=== PATIENT | female | born 1955 | race Caucasian/White ===

== ENCOUNTER 2022-09-08 16:12 | Emergency (ER) | payer MEDICARE, MEDICAID, SELFPAY ==
[2022-09-08 16:12] VITALS: BP 121/67; PULSE 114; RESP 16; TEMP 36.5; O2SAT 96; BMI 31.1
--- NOTE | 2022-09-08 16:28 | EX.ED.VIS.UR ---
HPI HPI - URI History of Present Illness Chief Complaint: Nosebleed Informant: patient Onset/Context/Timing Onset: - (30 min [employer]) Context: Sudden Onset Timing: Continuous Quality: oozing Location: both nostrils she thinks, not sure Current Severity: Mild Maximum Severity: Severe Worsened by: - (nothing) Relieved by: - (holding pressure) Associated Symptoms Associated Symptoms: Positive for Nasal Congestion Narrative Narrative: Patient spontaneous nosebleed today from both sides. Seems to be better now that she is holding pressure. She was swallowing a lot of blood, started without any injury, just when she bent over. States she has been using phenylephrine nasal spray every day for months because of congestion and trouble breathing through her nose when she is trying to sleep mostly. Better during the day. She went to ENT and they told her to stop it and they were doing some allergy injections, so she stopped the phenylephrine nasal spray for about 1 or 2 weeks about a month or so ago, but the other things they were doing were not helping her at all so she has continued to use it every night. She denies taking any aspirin or anticoagulants. ROS ROS ED Constitutional Constitutional ED: Denies chills or fever(s) Eyes Eyes: Denies change in vision or diplopia ENT ENT ED: Reports epistaxis and nasal congestion; Denies sinus pain, sinus pressure or sore throat Cardiovascular Cardiovascular: Denies chest pain or palpitations Respiratory/Chest Respiratory/Chest: Denies cough or dyspnea Gastrointestinal Gastrointestinal: Denies abdominal pain, diarrhea, nausea or vomiting Genitourinary Genitourinary ED: Denies dysuria or hematuria Musculoskeletal Musculoskeletal: Denies myalgias or neck pain Integumentary Denies abscess or rash Neurologic Neurologic: Denies headache(s), paresthesias or weakness Psychiatric Psychiatric: Denies depression or suicidal thoughts Endocrine Endocrinology: Denies polydipsia or polyuria [facility] Medical History (Updated 09/08/22 @ 18:[address] Tyshawn Lantigua MD) Benign hypertension Home Medications albuterol sulfate 90 mcg/actuation aerosol inhaler (Ventolin HFA) 1 - 2 puff inhalation Q4H PRN PRN Wheezing ##1 01/16/15 [Rx Last Taken Unknown] dexlansoprazole 60 mg capsule,biphase delayed release 60 mg PO DAILY 09/08/22 [History Last Taken Unknown] escitalopram oxalate 5 mg tablet 5 mg PO DAILY 09/08/22 [History Last Taken Unknown] famotidine 20 mg tablet 20 mg PO DAILY 09/08/22 [History Last Taken Unknown] lisinopril 20 mg-hydrochlorothiazide 12.5 mg tablet 1 tab PO BID 09/08/22 [History Last Taken Unknown] simvastatin 20 mg tablet 20 mg PO QHS 09/08/22 [History Last Taken Unknown] zolpidem 5 mg tablet 5 mg PO QHS PRN PRN Sleep 09/08/22 [History Last Taken Unknown] Allergy/AdvReac Type Severity Reaction Status Date / Time No Known Allergies Allergy Verified 09/08/22 16:14 Social History Smoking Status: Never smoker EXAM Physical Exam Const Vital Signs: 09/08/22 16:12 09/08/22 17:12 Temperature 97.7 F L Temperature Source Temporal Pulse Rate 114 H Respiratory Rate 16 16 Blood Pressure 121/67 H Blood Pressure Mean 85 Pulse Ox 96 Oxygen Delivery Method Room Air Positive well nourished and well developed General Appearance ED: well developed and NAD HEENT Reports moist mucous membranes HEENT Narrative: Posterior oropharynx with some blood but no active bleeding. Removed the nasal clip from the patient's nose, there is blood in both sides with minimal active oozing. I had patient blow her nose, she blew out a large amount of blood clots, and blood and on reevaluation she does not have active bleeding but she appears to have a small source at the septum on the left that is just barely starting to bleed. normocephalic and atraumatic Throat: Negative for posterior oropharynx abnormal Eyes PERRL and EOMs intact bilaterally Neck no lymphadenopathy, supple and no meningeal signs Resp normal respiratory effort and clear to auscultation bilaterally Cardio no murmurs Rate: regular rate Rhythm: regular rhythm Neuro oriented x3, CN's II-XII intact bilaterally and no sensory deficits noted Sensorium / Orientation: alert Motor Exam: strength 5/5 throughout Skin Lesions: no lesions Rashes: no rashes MDM MDM MDM Narrative Medical decision making narrative: Initially after evacuating her own nose of blood and clots, I evaluated again and she has the likely nidus of bleeding in the anterior aspect of the left naris at the septum. It is no longer bleeding. Therefore after the patient verbal consent, I did topical silver nitrate cauterization, however it started bleeding due to this and so then topical Shilpa solution was placed in both nostrils, via inhalation as well as a pledget and the patient was observed for 20 minutes or so. She had a little bit of bleeding through this we had to do it again, but afterwards I was able to recauterize the area where the bleeding was coming from with good hemostasis. She was observed for another 10 or 15 minutes without any recurrent bleeding and discharged home advised to stop doing the daily nasal spray and try something like Breathe Right strips. Discharge Plan Triage Chief Complaint: Nosebleed ED Provider: Tyshawn Lantigua Dx/Rx/DC Orders Clinical Impression: Acute anterior epistaxis, Nasal congestion Instructions: Nosebleed Prescriptions: No Action albuterol sulfate [Ventolin HFA] 1 INHALER inhaler 1 - 2 puff inhalation Q4H PRN PRN (Reason: Wheezing) Qty: 1 0RF lisinopril-hydrochlorothiazide 20-12.5 mg tablet 1 tab PO BID Label Comments: TAKE 1 TABLET BY MOUTH TWICE A DAY famotidine 20 mg tablet 20 mg PO DAILY Label Comments: TAKE 1 TABLET BY MOUTH EVERY DAY AT BEDTIME NEEDED simvastatin 20 mg tablet 20 mg PO QHS Label Comments: TAKE 1 TABLET BY MOUTH EVERYDAY AT BEDTIME zolpidem 5 mg tablet 5 mg PO QHS PRN PRN (Reason: Sleep) Label Comments: TAKE 1 TABLET BY MOUTH AT BEDTIME NEEDED (INSOMNIA) FOR UP TO 180 DAYS. escitalopram oxalate 5 mg tablet 5 mg PO DAILY Label Comments: TAKE 1 TABLET BY MOUTH EVERY DAY dexlansoprazole 60 mg capsule,biphase delayed releas 60 mg PO DAILY Primary Care Provider: Forest Levine Referrals: Parvez Massey MD [Med Staff - Active Staff] - As Needed Activity Restrictions/Additional Instructions: Try to stop using phenylephrine nasal spray for a while is much as possible. Try Breathe Right strips at night for your congestion. If you have recurrent bleeding, you may first use any nech-kzz-eouefim nasal decongestant spray containing oxymetazoline or phenylephrine. For moderate-severe nosebleed: 1 - gather supplies: nasal decongestant spray (above), cotton ball, box of tissues, garbage can, old towel that you can wrap around your chest/neck (to catch blood) 2 - soak a cotton ball in the nasal spray 3 - blow your nose, get all blood and clots out, keep chin down to prevent blood from going back into throat and forming clots 4 - after blowing the last time, quickly spray 2 sprays of the nasal spray into the affected side and sniff it back, immediately followed by twisting the soaked cotton ball into the front of your nose and then hold pressure with your fingers. 5 - if bleeding controlled, leave cotton ball in place for at least 20 min before checking to see if the bleeding is controlled by removing the cotton ball. If not able to control bleeding, always welcome to return to the ER for help. Disposition Disposition: Home, Self Care
[2022-09-08] MEDS: Silver Nitrate (BKC) 1 EACH TOPICAL (16:50)
[2022-09-08] MEDS: Mixture 30 ML Bottle 5 ML TOPICAL (16:50)
[2022-09-08 17:12] VITALS: RESP 16
== END 2022-09-08 18:20 | disposition home or self-care (01) ==
PROVIDERS: Emergency Provider Emergency Medicine; PCP Family Medicine; Visit Provider Emergency Medicine
DX: R04.0 Epistaxis (principal); R09.81 Nasal congestion; I10 Essential (primary) hypertension
CPT/HCPCS: 30901; 99281; 99282

== ENCOUNTER 2022-09-18 21:35 | Emergency (ER) | payer MEDICARE, MEDICAID, SELFPAY ==
[2022-09-18 21:35] VITALS: BP 155/11; PULSE 121; RESP 18; TEMP 36.6; O2SAT 96; BMI 31.8
[2022-09-18] MEDS: Thrombin 5,000 IU Kit (PSA) 5,000 IU Vial 5000 IU TOPICAL (22:07)
[2022-09-18] MEDS: Mixture 30 ML Bottle 10 ML TOPICAL (22:07)
--- NOTE | 2022-09-18 22:15 | EX.ED.DYSGE1 ---
HPI History of Present Illness Chief Complaint: Nosebleed Informant: patient and spouse/S.O. Narrative Narrative: Patient presents with epistaxis. This patient was seen 10 days ago for the same. She used to use phenylephrine nasal spray at least daily for over a year. She had stopped this for a week or so after seeing Dr. Massey. She had presented with epistaxis and had some left side cauterization according to the chart. She states since then she has had off-and-on small amount of dried blood in her nose. Most has been on the right side. This evening while watching TV she had onset of dripping from the right side of the nose. She states that it could have been a little bit from the both but was mostly right side. She states somebody told her she has a hole in her nose. It sounds like she may had a perforated septum possibly from long-term phenylephrine use. Patient is not on any anticoagulation including lxjo-cix-ybqnfpo aspirin or nonsteroidals. Squeezing the nose does stop the bleeding. She is not lightheaded or dizzy. She has no other areas of bleeding or bruising. She has attempted calling for follow-up with her ENT. However, the staff answering the phone has told her that she has to see the same physician and its not worth coming in because they would just cauterize it and that had already been done. [facility] Medical History Benign hypertension Home Medications albuterol sulfate 90 mcg/actuation aerosol inhaler (Ventolin HFA) 1 - 2 puff inhalation Q4H PRN PRN Wheezing ##1 01/16/15 [Rx Last Taken Unknown] dexlansoprazole 60 mg capsule,biphase delayed release 60 mg PO DAILY 09/08/22 [History Last Taken Unknown] escitalopram oxalate 5 mg tablet 5 mg PO DAILY 09/08/22 [History Last Taken Unknown] famotidine 20 mg tablet 20 mg PO DAILY 09/08/22 [History Last Taken Unknown] lisinopril 20 mg-hydrochlorothiazide 12.5 mg tablet 1 tab PO BID 09/08/22 [History Last Taken Unknown] simvastatin 20 mg tablet 20 mg PO QHS 09/08/22 [History Last Taken Unknown] zolpidem 5 mg tablet 5 mg PO QHS PRN PRN Sleep 09/08/22 [History Last Taken Unknown] Allergy/AdvReac Type Severity Reaction Status Date / Time No Known Allergies Allergy Verified 09/18/22 21:37 Social History Smoking Status: Never smoker ROS ROS ED Constitutional Constitutional ED: Denies chills, fever(s) or subjective ENT ENT ED: Reports other Details: See history of present illness. Patient has not had fevers chills or purulent drainage. ; Denies ear pain or sore throat Cardiovascular Cardiovascular: Denies chest pain or palpitations Respiratory/Chest Respiratory/Chest: Denies cough or dyspnea Gastrointestinal Gastrointestinal: Denies melena, nausea or vomiting Genitourinary Genitourinary ED: Denies hematuria Integumentary Denies rash Neurologic Neurologic: Denies weakness Endocrine Endocrinology: Denies polydipsia or polyuria Hematologic/Lymphatic Hematologic/Lymphatic: Denies anemia, easy bleeding or easy bruising Allergic/Immunologic Allergic/Immunologic ED: Denies urticaria EXAM Physical Exam Const Vital Signs: 09/18/22 21:35 09/19/22 00:01 Temperature 97.8 F Temperature Source Temporal Pulse Rate 121 H 72 Respiratory Rate 18 Blood Pressure 155/11 H 132/74 H Blood Pressure Mean 59 Pulse Ox 96 99 Oxygen Delivery Method Room Air Positive well nourished and well developed General Appearance ED: well developed and NAD HEENT HEENT Narrative: Patient has nasal clamp in place. No bleeding with this. No posterior pharyngeal bleeding. Clamp is removed. She had a small drip of red blood coming from the left nare after about 30 seconds or a minute. But no brisk bleeding. The nostril does have a clot in the right. There is a small amount of blood in the right but it looks dried and just the tip. With the patient blow her nose. She did get out clots from the left and this started a very minimal amount of bleeding. Eyes EOMs intact bilaterally General Eye ED: Negative for pale conjunctiva or scleral icterus Neck no lymphadenopathy Chest Wall inspection of chest normal Resp normal respiratory effort and clear to auscultation bilaterally Cardio regular rate and regular rhythm Rate: other Other Details: Heart rate is about 90 at this time. Patient is a bit anxious. She has a little trouble sitting still. I think this likely contributed to her initially high heart rate. GI normal to inspection, nondistended, normoactive bowel sounds Palpation: soft Back/Spine no CVA tenderness Extremity Extremity Narrative: No abnormal bruising. General Extremety ED: Negative for tenderness Neuro oriented x3 Sensorium / Orientation: alert Psych Mood & Affect: anxious Skin no rashes or lesions noted Skin Narrative: No petechiae or purpura. No pallor. MDM MDM MDM Narrative Medical decision making narrative: Procedure: Management of epistaxis: When I initially saw the patient, we had her blow clots from the nose. Pledgets soaked with Mathurs mixture was placed in both nostrils. This seems to be stopping the blood at this time. I will allow this to rest and then come back and address this again. 22: 50 we went back and checked the patient. The pledgets were almost dry. There is a hint of a spot of blood on the left side medially. But there is no blood on the right. When I first saw her it appeared as though she had had a drip of blood more on the right. But there is no sign of blood now. Right nare looked quite clear. The left nare does have an area that looks like it is healing from the recent cauterization. There is a small irritated vessel on this but it stopped bleeding now. She has no further bleeding. I discussed options with her. She states she cannot stand when she cannot breathe through her nose. This is why she was using phenylephrine. She does not really want to have a packing in that nose. So we will try spray thrombin to see if this will control this. 23: 20 patient's recheck. There is not any bleeding at all. There is no bleeding internally. No bleeding externally. There is no bleeding in the pharynx. Patient can breathe well through her nose. She reaffirms that she really does not want packing in her nose if she can avoid it. We will get her up and walk around to make sure she does not have rebleeding. If she does well we will get her home. She will follow-up with her ENT physician. She will call in the morning. We discussed management at home including resting, phenylephrine and the nasal clamp if she has rebleeding. She should avoid lifting pulling straining and bending or hot liquids or foods. Discharge Plan Triage Chief Complaint: Nosebleed ED Provider: Bry [place] Dx/Rx/DC Orders Clinical Impression: Acute anterior epistaxis Instructions: ED Epistaxis (Adult) Prescriptions: No Action albuterol sulfate [Ventolin HFA] 1 INHALER inhaler 1 - 2 puff inhalation Q4H PRN PRN (Reason: Wheezing) Qty: 1 0RF lisinopril-hydrochlorothiazide 20-12.5 mg tablet 1 tab PO BID Label Comments: TAKE 1 TABLET BY MOUTH TWICE A DAY famotidine 20 mg tablet 20 mg PO DAILY Label Comments: TAKE 1 TABLET BY MOUTH EVERY DAY AT BEDTIME NEEDED simvastatin 20 mg tablet 20 mg PO QHS Label Comments: TAKE 1 TABLET BY MOUTH EVERYDAY AT BEDTIME zolpidem 5 mg tablet 5 mg PO QHS PRN PRN (Reason: Sleep) Label Comments: TAKE 1 TABLET BY MOUTH AT BEDTIME NEEDED (INSOMNIA) FOR UP TO 180 DAYS. escitalopram oxalate 5 mg tablet 5 mg PO DAILY Label Comments: TAKE 1 TABLET BY MOUTH EVERY DAY dexlansoprazole 60 mg capsule,biphase delayed releas 60 mg PO DAILY Primary Care Provider: Forest Levine Referrals: Reji Massey MD [Med Staff - Courtesy Staff] - As soon as possible Forest Levine MD [Primary Care Provider] - Disposition Disposition: Home, Self Care Discharge Date/Time: 09/19/22 00:02
[2022-09-19 00:01] VITALS: BP 132/74; PULSE 72; O2SAT 99
== END 2022-09-19 00:02 | disposition home or self-care (01) ==
PROVIDERS: Emergency Provider Emergency Medicine; PCP Family Medicine; Visit Provider Emergency Medicine
DX: R04.0 Epistaxis (principal); I10 Essential (primary) hypertension; Z79.899 Other long term (current) drug therapy
CPT/HCPCS: 30901; 99282